=== PATIENT | male | born 1990 | race African-American/Black ===

== ENCOUNTER 2017-06-24 00:05 | Emergency (ER) | payer OTHER, BC ==
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
[~2017-06-24 00:05] MED LIST: ALBUTEROL MININEB NEB
== END 2017-06-24 03:25 | disposition home or self-care (01) ==
LOC: CED 00:05
DX: S39.92XA Unspecified injury of lower back, initial encounter (principal); F17.210 Nicotine dependence, cigarettes, uncomplicated; V49.00XA Driver injured in collision with unspecified motor vehicles in nontraffic accident, initial encounter; Y92.410 Unspecified street and highway as the place of occurrence of the external cause
CPT/HCPCS: 72100; 96372; 99284; J1885